=== PATIENT | male | born 1950 | race Hispanic/Latino ===

== ENCOUNTER 2019-05-07 06:25 | Day surgery (SDC) | payer OTHER ==
[~2019-05-07] VITALS: Ht 160 cm; Wt 100.2 kg
[~2019-05-07 06:25] MED LIST: SODIUM CHLORIDE 0.9% 1000ML 1,000 ML IV ONE
[2019-05-07 08:11] VITALS: BP 102/79
[2019-05-07] MEDS ORDERED: SPIR50TA PO (08:21)
[2019-05-07] MEDS ORDERED: LOSA1TAB54 PO (08:21)
[2019-05-07] MEDS ORDERED: SIMV5TAB58 PO (08:21)
[2019-05-07] MEDS ORDERED: FURO40TA7 PO (08:21)
[2019-05-07] MEDS ORDERED: METF-444 PO (08:21)
[2019-05-07] MEDS ORDERED: PROPOFOL 10 MG/ML 20ML VIAL IV ONE ×2 (09:09→09:22)
[2019-05-07 09:31] VITALS: BP 97/54
[2019-05-07 09:35] VITALS: BP 104/56
[2019-05-07 09:40] VITALS: BP 106/50
== END 2019-05-07 10:06 | disposition home or self-care (01) ==
LOC: ENDO 06:25 → DAH 06:25 → ENDO 10:06
PROVIDERS: ATTEND Internal Medicine Gastroenterology
DX: K70.31 Alcoholic cirrhosis of liver with ascites (principal); I85.00 Esophageal varices without bleeding; K29.50 Unspecified chronic gastritis without bleeding; E78.5 Hyperlipidemia, unspecified; K64.9 Unspecified hemorrhoids; E11.9 Type 2 diabetes mellitus without complications; E66.9 Obesity, unspecified; Z79.899 Other long term (current) drug therapy; Z68.38 Body mass index [BMI] 38.0-38.9, adult
CPT/HCPCS: 43239; 82948 ×2; 88305; A4215; A4221; A4222; A4223; A4606; A4620; A4663; J2704 ×2; J7030